=== PATIENT | male | born 1950 | race Caucasian/White ===

== ENCOUNTER 2018-06-03 10:30 | Outpatient (RCR) | payer OTHER, SELFPAY ==
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
== END 2018-06-03 19:00 | disposition home or self-care (01) ==
LOC: SP 10:30
PROVIDERS: Family Provider Family Medicine; PCP Family Medicine
DX: R41.81 Age-related cognitive decline (principal); F98.5 Adult onset fluency disorder
CPT/HCPCS: 92507; 92523; G9174; G9175

== ENCOUNTER 2018-06-28 14:00 | Outpatient (RCR) | payer OTHER, SELFPAY ==
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
--- NOTE | 2018-11-01 14:18 | HP.SP.DC ---
ST Discharge Summary - Discharged: Discharge: Shreyas Gonzales is discharged from outpatient speech-language therapy effective 11/01/2018 due to lack of insurance approval and scheduled appointments. Shreyas participated in 20 approved visits with this therapist, demonstrating severe impairments across all domains of cognitive-linguistic functioning. Please see his last re-evaluation, dated 07/08/2018, for specific information regarding the patient's goals and progress, as he has not been seen since that time. As of his last appointment, skilled speech-language therapy continued to be warranted to achieve Shreyas' highest level of safe, independent functioning, as his deficits make it difficult for the patient to understand and express wants, needs, thoughts, and ideas across environments and in emergent situations. Please reconsult as necessary.
== END 2018-06-28 19:00 | disposition home or self-care (01) ==
LOC: SP 14:00
PROVIDERS: Family Provider Family Medicine; PCP Family Medicine
DX: R41.841 Cognitive communication deficit (principal)
CPT/HCPCS: 92507

== ENCOUNTER 2019-09-17 15:30 | Outpatient (RCR) | payer OTHER, SELFPAY, MEDICARE ==
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
== END 2019-09-17 19:00 | disposition home or self-care (01) ==
LOC: SP 15:30
PROVIDERS: Family Provider Family Medicine; PCP Family Medicine
DX: I69.920 Aphasia following unspecified cerebrovascular disease (principal)
CPT/HCPCS: 92507; 92523

== ENCOUNTER 2019-09-24 13:44 | Outpatient (RCR) | payer OTHER, SELFPAY ==
--- NOTE | 2019-11-04 11:59 | HP.SP.DC ---
ST Discharge Summary - Discharged: Discharge: Shreyas Gonzales is discharged from outpatient speech-language therapy effective 11/04/2019. Shreyas has attended therapy on-and-off since October,, demonstrating consistent attendance. Overall, however, he has made limited progress in terms of improved cognitive-linguistic skills. Therefore, his would like to hold therapy at this time as she pursues further neurological workup/a second opinion. Please reconsult as necessary.
== END 2019-09-24 19:00 | disposition home or self-care (01) ==
LOC: SP 13:44
PROVIDERS: PCP Family Medicine
DX: I69.920 Aphasia following unspecified cerebrovascular disease (principal)
CPT/HCPCS: 92507

== ENCOUNTER → 2020-01-06 08:37 | Outpatient (CLI) | payer OTHER, MEDICARE, SELFPAY ==
[2019-12-30 13:10] VITALS: BMI 26.8
[2020-01-06 09:14] LABS: Erythrocyte Sedimentation Rate 2 mm/hr (0-20)
[2020-01-06 10:00] LABS: Anion Gap 1 (5-15); BUN 17 mg/dL (7-18); BUN/Creat Ratio 14.4 RATIO (10-20); Calcium,Total 9.7 mg/dL (8.5-10.1); Chloride 108 mmol/L (98-107); Creatinine, Serum 1.18 mg/dL (0.70-1.30); EST Glomerular Filtration Rate 65 mL/min (>60); Est Glom Filt Rate - Afr Amer 78 mL/min (>60); Glucose 93 mg/dL (74-106); Potassium 4.2 mmol/L (3.5-5.1); Sodium Level 141 mmol/L (136-145); Thyroid Stim Hormone (TSH) 0.95 uIU/mL (0.358-3.74)
[2020-01-07 14:09] LABS: ANTINUCLEAR ANTIBODIES DIRECT Positive (Negative); Anti-Centromere B Ab <0.2 AI (0.0-0.9); Anti-Chromatin <0.2 AI (0.0-0.9); Anti-Jo <0.2 AI (0.0-0.9); RNP Ab <0.2 AI (0.0-0.9); SJOGREN'S Anti-SS-A test < 0.2 AI (0.0-0.9); SJOGREN'S Anti-SS-B test < 0.2 AI (0.0-0.9); Smith Ab <0.2 AI (0.0-0.9)
[2020-01-07 14:59] LABS: Anti-dsDNA Ab 3 IU/mL (0-9)
[2020-01-12 04:42] LABS: Vitamin B1, Thiamine 132.2 nmol/L (66.5-200.0)
== END ==
PROVIDERS: Referring Provider Psychiatry & Neurology Neurology; Visit Provider Psychiatry & Neurology Neurology
DX: F03.90 Unspecified dementia, unspecified severity, without behavioral disturbance, psychotic disturbance, mood disturbance, and anxiety (principal); G31.1 Senile degeneration of brain, not elsewhere classified; F02.80 Dementia in other diseases classified elsewhere, unspecified severity, without behavioral disturbance, psychotic disturbance, mood disturbance, and anxiety; I67.9 Cerebrovascular disease, unspecified
CPT/HCPCS: 36415; 80048; 82746; 84425; 84443; 85652; 86038; 86225; 86235

== ENCOUNTER → 2020-01-14 09:17 | Outpatient (CLI) | payer OTHER, MEDICARE, SELFPAY ==
[2019-12-30 13:10] VITALS: BMI 26.8
--- NOTE | 2020-01-14 09:21 | MRI_ITS ---
STUDY: MRI BRAIN WITH AND WITHOUT CONTRAST REASON FOR EXAM: Male, 69 years old. Progressive aphasia, dementia, cognitive decline TECHNIQUE: Standardized multiplanar fat and water weighted pulse sequences were obtained. IV 15 CC DOTAREM was administered for the contrast portion of the examination. COMPARISON: None. FINDINGS: There is moderate cerebral atrophy with widening of the extra-axial spaces and ventricular dilatation. There are a limited number of small white matter hyperintensities, distributed throughout the deep white matter tracts of the cerebral hemispheres, consistent with mild chronic white matter ischemic changes. There is no evidence for recent intracranial ischemia or other cause of cytotoxic edema on diffusion weighted imaging (DWI). Normal T2* images of the brain without demonstrated susceptibility artifact. There is no demonstrated hemosiderin stain. Thin section coronal T2-weighted images through the temporal lobes demonstrate bilateral hippocampal atrophy which may be considered significant with cognitive decline. Normal bilateral basal ganglia. Normal thalami. There is no extra-axial fluid accumulation. Normal flow voids within the major intracranial circulation suggesting patency by spin echo criteria. Normal venous enhancement. There is no enhancing intra-axial or extra-axial abnormality. Normal sella turcica, pituitary gland, infundibular stalk, optic chiasm and hypothalamus. Normal tectal plate and pineal gland. Normal midbrain, isis and medulla. Normal cerebellum. Normal basal cisterns. 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 Normal bilateral internal auditory canals. No demonstrated orbital abnormality, within the constraints of a routine brain study. Normal visualized paranasal sinuses. Normal calvarium and skull base. Normal visualized soft tissue structures. Normal visualized upper cervical spine. MRI/Brain W/WO Contrast IMPRESSION: Involutional changes of the brain, as described above. Bilateral hippocampal atrophy which could be significant with cognitive decline and can be seen in Alzheimer''s disease. Electronically Signed: James Alvarado MD at 10:55 EST Tel , Service support ,
== END ==
PROVIDERS: Referring Provider Psychiatry & Neurology Neurology; Visit Provider Psychiatry & Neurology Neurology
DX: F03.90 Unspecified dementia, unspecified severity, without behavioral disturbance, psychotic disturbance, mood disturbance, and anxiety (principal); G31.01 Pick's disease; F02.80 Dementia in other diseases classified elsewhere, unspecified severity, without behavioral disturbance, psychotic disturbance, mood disturbance, and anxiety
CPT/HCPCS: 70553; A9575

== ENCOUNTER → 2020-01-30 06:27 | Outpatient (CLI) | payer OTHER, MEDICARE, SELFPAY ==
[2019-12-30 13:10] VITALS: BMI 26.8
--- NOTE | 2020-01-30 09:32 | TELEMED_ITS ---
[facility] has confirmed receipt of a request for visit. This document confirms receipt of the order initiating the consult. To find the results of the consultation, please view the patient's reports for the scanned Telemed Consult.
== END ==
PROVIDERS: Referring Provider Psychiatry & Neurology Neurology; Visit Provider Psychiatry & Neurology Neurology
DX: F03.90 Unspecified dementia, unspecified severity, without behavioral disturbance, psychotic disturbance, mood disturbance, and anxiety (principal); G31.01 Pick's disease; F02.80 Dementia in other diseases classified elsewhere, unspecified severity, without behavioral disturbance, psychotic disturbance, mood disturbance, and anxiety; I67.9 Cerebrovascular disease, unspecified
CPT/HCPCS: 95819

== ENCOUNTER → 2022-06-07 | Outpatient (CLI) | payer MEDICARE, OTHER, SELFPAY ==
[2022-06-07 15:25] LABS: Hematocrit 46.9 % (40-54); Hemoglobin 15.7 g/dL (13.0-16.5); Mean Corp Hgb Conc 33.5 g/dL (32-36); Mean Corpuscular Hgb 30.9 pg (27.0-32.0); Mean Corpuscular Volume 92.3 fL (80-94); Mean Platelet Vol. 10.3 fl (6.2-12.0); Platelet Count 285 K/mm3 (150-450); RBC Distribution Width CV 12.9 % (11.6-14.6); RBC Distribution Width SD 43.8 fl (35.1-43.9); Red Blood Count 5.08 M/mm3 (4.6-6.2); White Blood Count 5.5 K/mm3 (4.4-11.0)
[2022-06-07 16:02] LABS: T4 Free Direct 0.95 ng/dL (0.76-1.46)
[2022-06-07 16:05] LABS: ALB/GLOB Ratio 1.2 RATIO (0.9-2.4); AST(SGOT) 14 U/L (15-37); Alanine Aminotransfer ALT/SGPT 32 U/L (16-61); Alkaline Phosphatase 61 U/L (45-117); Anion Gap 2 (5-15); BUN 19 mg/dL (7-18); BUN/Creat Ratio 14.1 RATIO (10-20); Calcium,Total 9.7 mg/dL (8.5-10.1); Chloride 107 mmol/L (98-107); Creatinine, Serum 1.35 mg/dL (0.70-1.30); EST Glomerular Filtration Rate 55 mL/min (>60); Est Glom Filt Rate - Afr Amer 66 mL/min (>60); Free T3 2.4 pg/mL (2.18-3.98); Globulin 3.3 g/dL (2.2-4.2); Glucose 84 mg/dL (74-106); Potassium 4.5 mmol/L (3.5-5.1); Protein, Total 7.3 g/dL (6.4-8.2); Sodium Level 136 mmol/L (136-145)
== END | disposition home or self-care (01) ==
LOC: MTLAB 12:38
PROVIDERS: PCP Internal Medicine; Referring Provider Psychiatry & Neurology Neurology; Visit Provider Psychiatry & Neurology Neurology
DX: F03.90 Unspecified dementia, unspecified severity, without behavioral disturbance, psychotic disturbance, mood disturbance, and anxiety (principal); R53.83 Other fatigue
CPT/HCPCS: 36415; 80053; 84439; 84443; 84481; 85027